=== PATIENT | male | born 1970 | race Caucasian/White ===

== ENCOUNTER 2019-01-12 01:00 | Emergency (ER) | payer BC ==
[~2019-01-12] VITALS: Ht 177.8 cm; Wt 104.0 kg
[2019-01-12] MEDS ORDERED: ONDANSETRON HCL 4MG/2ML INJ IV STA (02:39)
[2019-01-12] MEDS ORDERED: MORPHINE SULFATE 4 MG/ML CPJ (NOT FOR IM USE) IV STA (02:39)
[2019-01-12] MEDS ORDERED: PROPOFOL 200MG/20ML VIAL IV ONE (04:00)
[2019-01-12] MEDS ORDERED: ONDANSETRON HCL 4MG/2ML INJ IV ONE (04:00)
[2019-01-12 06:54] VITALS: BP 136/88
== END 2019-01-12 06:57 | disposition home or self-care (01) ==
LOC: ER 02:00
DX: S53.105A Unspecified dislocation of left ulnohumeral joint, initial encounter (principal); W19.XXXA Unspecified fall, initial encounter; Y93.89 Activity, other specified; Y92.89 Other specified places as the place of occurrence of the external cause; Y99.8 Other external cause status
CPT/HCPCS: 24600; 71045; 73060; 73070; 73090; 96374; 96375; 96376; 99152; 99285; J2270; J2405; J2704; Z7610; A4565